=== PATIENT | male | born 1995 | race Caucasian/White ===

== ENCOUNTER 2017-09-03 16:59 | Emergency (ER) | payer MEDICAID, OTHER ==
[~2017-09-03] VITALS: Ht 190.5 cm; Wt 80.0 kg
[~2017-09-03 16:59] MED LIST: CEPH500C5 PO; NO HOME MEDS
[2017-09-03 17:13] VITALS: BP 112/70
[2017-09-03] MEDS ORDERED: HYDR28CR14 TOP (17:18)
[2017-09-03] MEDS ORDERED: triamcinolone acetonide 40mg/ml inj IM ONE (17:20)
== END 2017-09-03 17:46 | disposition home or self-care (01) ==
LOC: ER 17:00
DX: L23.7 Allergic contact dermatitis due to plants, except food (principal); F12.90 Cannabis use, unspecified, uncomplicated; Z79.899 Other long term (current) drug therapy; Z60.2 Problems related to living alone
CPT/HCPCS: 96372; 99283; J3301

== ENCOUNTER 2017-10-26 17:40 | Emergency (ER) | payer OTHER ==
[~2017-10-26] VITALS: Ht 190.5 cm; Wt 80.0 kg
[~2017-10-26 17:40] MED LIST changes: +HYDR28CR14 TOP
[2017-10-26] MEDS ORDERED: famotidine/PF 10 mg/ml inj IV ONE (18:00)
[2017-10-26] MEDS ORDERED: ondansetron/PF 4mg/2ml inj IV ONE (18:00)
[2017-10-26] MEDS ORDERED: normal saline 1000ML IV soln IVB ONE (18:00)
[2017-10-26 18:05] LABS: CLARITY,URINE CLEAR (Clear); COLOR,URINE YELLOW (Yellow); GLUCOSE, URINE NEGATIVE (Neg); KETONES,URINE NEGATIVE (Neg); LEUKOCYTE ESTERASE ,URINE NEGATIVE (Neg); NITRITES, URINE NEGATIVE (Neg); OCCULT BLOOD,URINE NEGATIVE (Neg); PROTEIN,URINE NEGATIVE (Neg); UA COLLECTION TYPE CLN CATCH MIDSTREAM; UROBILINOGEN,URINE 0.2 E.U/dL (0.2-1.0)
[2017-10-26 18:05] LABS: BASOPHILS % (AUTO) 0.3 % (0-1); EOSINOPHILS # (AUTO) 0.3 X10'3 (0-0.9); HEMATOCRIT 49.4 % (42.0-52.0); LYMPHOCYTES % (AUTO) 7.2 % (21-51); MEAN CORPUSCULAR HEMOGLOBIN 30.5 PG (27.0-31.0); MEAN CORPUSCULAR HGB CONC 34.4 % (33.0-36.5); MEAN CORPUSCULAR VOLUME 88.8 FL (78-98); MEAN PLATELET VOLUME 7.1 FL (7.4-10.4); MONOCYTES # (AUTO) 0.3 X10'3 (0-0.9); MONOCYTES % (AUTO) 2.2 % (2-12); NEUTROPHILS # (AUTO) 12.2 X10'3 (1.8-7.7); NEUTROPHILS % (AUTO) 88.3 % (42-75); PLATELET COUNT 201 X10'3 (140-440); RED BLOOD COUNT 5.56 X10'6 (4.70-6.10); WHITE BLOOD COUNT 13.9 X10'3 (4.5-11.0)
[2017-10-26 18:13] LABS: INR 1.1 INR; PROTHROMBIN TIME 11.3 SECONDS (9.0-12.0)
[2017-10-26 18:19] LABS: ALANINE AMINOTRANSFERASE 23 U/L (12-78); ALBUMIN 4.5 G/DL (3.4-5.0); ALBUMIN/GLOBULIN RATIO 1.4 (1.1-1.5); ALKALINE PHOSPHATASE 101 IU/L (46-116); ANION GAP 10 (8-16); ASPARTATE AMINO TRANSFERASE 12 U/L (10-37); BILIRUBIN,TOTAL 1.1 MG/DL (0.1-1.0); BLOOD UREA NITROGEN 11 MG/DL (7-18); BUN/CREATININE RATIO 12.1 (5.4-32.0); CALCIUM 9.6 MG/DL (8.5-10.1); CHLORIDE 99 MMOL/L (99-107); CREATININE 0.91 MG/DL (0.60-1.10); GLUCOSE 82 MG/DL (70-104); LIPASE 72 U/L (73-393); POTASSIUM 3.9 MMOL/L (3.5-5.1); SODIUM 135 MMOL/L (135-145); TOTAL CARBON DIOXIDE 25.6 MMOL/L (24-32); TOTAL PROTEIN 7.8 G/DL (6.4-8.2); eGFR > 90 ML/MIN
[2017-10-26] MEDS ORDERED: ONDA4TAB9 SL (18:34)
[2017-10-26] MEDS ORDERED: proCHLORperazine 10 MG/2 ml inj IV ONE (18:35)
[2017-10-26] MEDS ORDERED: ketorolac trometh. 30mg/ml inj. IV ONE (18:35)
[2017-10-26 18:56] VITALS: BP 126/67
== END 2017-10-26 18:58 | disposition home or self-care (01) ==
LOC: ER 17:41
DX: K52.9 Noninfective gastroenteritis and colitis, unspecified (principal)
CPT/HCPCS: 36415; 80053; 81003; 83690; 85025; 85610; 96361; 96374; 96375; 99284; J0780; J1885; J2405; J3490; J7030

== ENCOUNTER 2017-10-29 16:32 | Emergency (ER) | payer OTHER ==
[~2017-10-29] VITALS: Ht 190.5 cm; Wt 79.5 kg
[~2017-10-29 16:32] MED LIST changes: +ONDA4TAB9 SL
[2017-10-29 16:55] VITALS: BP 110/67
[2017-10-29] MEDS ORDERED: HYDROcodone/acetaminophen 5mg/325mg tablet PO ONE (18:15)
[2017-10-29] MEDS ORDERED: ondansetron 4mg rapidly disintigrating tab PO ONE (18:15)
[2017-10-29] MEDS ORDERED: ibuprofen tablet 400 MG TABLET PO ONE (18:15)
[2017-10-29] MEDS ORDERED: IBUP-1986 PO (18:16)
== END 2017-10-29 18:45 | disposition home or self-care (01) ==
LOC: ER 16:32
DX: S62.326A Displaced fracture of shaft of fifth metacarpal bone, right hand, initial encounter for closed fracture (principal); F12.10 Cannabis abuse, uncomplicated; W22.01XA Walked into wall, initial encounter; Y93.89 Activity, other specified; Y92.89 Other specified places as the place of occurrence of the external cause; Y99.8 Other external cause status
CPT/HCPCS: 29125; 73130; 99284

== ENCOUNTER 2017-11-05 08:51 | Outpatient (CLI) | payer MEDICAID, OTHER ==
[~2017-11-05 08:51] MED LIST changes: +IBUP-1986 PO; -ONDA4TAB9 SL
[2017-11-05 08:52] VITALS: BP 124/68
== END 2017-11-05 10:11 | disposition home or self-care (01) ==
LOC: ORTHO 08:51
PROVIDERS: ATTEND Nurse Practitioner Family
DX: S62.326A Displaced fracture of shaft of fifth metacarpal bone, right hand, initial encounter for closed fracture (principal); M79.89 Other specified soft tissue disorders; N18.1 Chronic kidney disease, stage 1; F17.210 Nicotine dependence, cigarettes, uncomplicated; F12.90 Cannabis use, unspecified, uncomplicated; Z60.2 Problems related to living alone; X58.XXXA Exposure to other specified factors, initial encounter; Y93.89 Activity, other specified; Y92.89 Other specified places as the place of occurrence of the external cause; Y99.8 Other external cause status
CPT/HCPCS: 73130; 99215

== ENCOUNTER 2017-11-19 13:48 | Day surgery (SDC) | payer MEDICAID ==
[2017-11-17 11:18] LABS: BASOPHILS % (AUTO) 0.6 % (0-1); EOSINOPHILS # (AUTO) 0.1 X10'3 (0-0.9); EOSINOPHILS % (AUTO) 1.8 % (0-6); LYMPHOCYTES % (AUTO) 31.9 % (21-51); MEAN CORPUSCULAR HEMOGLOBIN 30.9 PG (27.0-31.0); MEAN CORPUSCULAR HGB CONC 34.9 % (33.0-36.5); MEAN CORPUSCULAR VOLUME 88.7 FL (78-98); MEAN PLATELET VOLUME 6.9 FL (7.4-10.4); MONOCYTES # (AUTO) 0.4 X10'3 (0-0.9); MONOCYTES % (AUTO) 6.5 % (2-12); NEUTROPHILS # (AUTO) 3.7 X10'3 (1.8-7.7); NEUTROPHILS % (AUTO) 59.2 % (42-75); PRE OP HEMATOCRIT 43.9 % (42.0-52.0); PRE OP HEMOGLOBIN 15.3 g/dL (14.0-17.9); PRE OP PLATELET COUNT 232 X10'3 (140-440); RED BLOOD COUNT 4.95 X10'6 (4.70-6.10); RED CELL DISTRIBUTION WIDTH 12.7 % (11.5-14.5)
[2017-11-17 11:36] LABS: ALBUMIN 4.1 G/DL (3.4-5.0); ALBUMIN/GLOBULIN RATIO 1.3 (1.1-1.5); ALKALINE PHOSPHATASE 90 IU/L (46-116); BLOOD UREA NITROGEN 13 MG/DL (7-18); BUN/CREATININE RATIO 18.1 (5.4-32.0); CALCIUM 9.1 MG/DL (8.5-10.1); CHLORIDE 105 MMOL/L (99-107); CREATININE 0.72 MG/DL (0.60-1.10); PRE OP ALT 29 U/L (30-65); PRE OP ANION GAP 6 (8-16); PRE OP AST 13 U/L (10-37); PRE OP BILIRUB, TOTAL 0.4 MG/DL (0.0-1.0); PRE OP GLUCOSE 94 MG/DL (70-104); PRE OP POTASSIUM 4.9 MMOL/L (3.4-5.1); PRE OP SODIUM 140 MMOL/L (135-145); TOTAL PROTEIN 7.2 G/DL (6.4-8.2); eGFR > 90 ML/MIN
[2017-11-19] VITALS (13 sets, daily range): BP systolic 125–152; BP diastolic 69–93
[~2017-11-19] VITALS: Ht 190.5 cm; Wt 80.8 kg
[~2017-11-19 13:48] MED LIST changes: -CEPH500C5 PO; +Cefazolin 2GM/50ML dext iso,osmotic IVPB IV ONE; -HYDR28CR14 TOP; -NO HOME MEDS; +ONDA4TAB6 PO; +albuterol 2.5 MG/3 ML nebule NEB ONE; +famotidine 20mg tablet PO ONE; +ringers solution, lacted 1,000 ML IV SCH; +vancomycin inj 1,500 MG in normal saline 300ml IV soln IV ONE
[2017-11-19] MEDS ORDERED: BUPIVAcaine/PF 2.5mg/ml (0.25%) 10ml vial ONE (14:04)
[2017-11-19] MEDS ORDERED: ceFAZolin 1000mg inj ONE (14:04)
[2017-11-19] MEDS ORDERED: bacitracin 15gm ointment TP ONE (14:04)
[2017-11-19] MEDS ORDERED: IBUP-1986 PO (15:27)
[2017-11-19] MEDS ORDERED: dexamethasone sod phosphate 10mg/ml inj ONE (16:00)
[2017-11-19] MEDS ORDERED: sevoflurane 250ml liquid IH ONE (16:00)
[2017-11-19] MEDS ORDERED: fentaNYL/PF 50MCG/1 ML 2ML syringe ONE ×2 (16:07→16:40)
[2017-11-19] MEDS ORDERED: propofol inj 20 ML IV ONE (16:16)
[2017-11-19] MEDS ORDERED: LIDOcaine 2% (20mg/ml) 5ml vial ONE (16:16)
[2017-11-19] MEDS ORDERED: ondansetron/PF 4mg/2ml inj ONE (16:17)
[2017-11-19] MEDS ORDERED: ringers solution, lacted 1,000 ML IV SCH (16:27)
[2017-11-19] MEDS ORDERED: ondansetron/PF 4mg/2ml inj IV PRN (16:30)
[2017-11-19] MEDS ORDERED: meperidine/PF 25mg/ml syringe IV PRN (16:30)
[2017-11-19] MEDS ORDERED: morphine 4 MG/ML inj SYRINge IV PRN ×2 (16:30)
[2017-11-19] MEDS ORDERED: hydrALAZINE 20mg/ml inj. IV PRN (16:30)
[2017-11-19] MEDS ORDERED: labetalol 20mg/4ml (5mg/ml) syringe IV PRN (16:30)
[2017-11-19] MEDS: meperidine/PF 25mg/ml syringe IV PRN ×4 (17:34→18:57)
[2017-11-19] MEDS ORDERED: ketorolac trometh. 30mg/ml inj. IV ONE (18:55)
== END 2017-11-19 19:23 | disposition home or self-care (01) ==
LOC: PAS 13:48
PROVIDERS: ATTEND Orthopaedic Surgery
DX: S62.326A Displaced fracture of shaft of fifth metacarpal bone, right hand, initial encounter for closed fracture (principal); F17.210 Nicotine dependence, cigarettes, uncomplicated; N19 Unspecified kidney failure; F10.21 Alcohol dependence, in remission; Z79.1 Long term (current) use of non-steroidal anti-inflammatories (NSAID); Z86.14 Personal history of Methicillin resistant Staphylococcus aureus infection; Z79.899 Other long term (current) drug therapy; X58.XXXA Exposure to other specified factors, initial encounter; Y93.89 Activity, other specified; Y92.89 Other specified places as the place of occurrence of the external cause; Y99.8 Other external cause status
CPT/HCPCS: 26615; 36415; 80053; 85025; J0690; J1885; J2001; J2175; J2270; J2405; J2704; J3010; J3370; J3490; J7120; A6449; A7000; C1713; J1100

== ENCOUNTER 2017-11-24 22:03 | Emergency (ER) | payer MEDICAID ==
[~2017-11-24] VITALS: Ht 190.5 cm; Wt 63.7 kg
[~2017-11-24 22:03] MED LIST changes: -Cefazolin 2GM/50ML dext iso,osmotic IVPB IV ONE; -albuterol 2.5 MG/3 ML nebule NEB ONE; -famotidine 20mg tablet PO ONE; -ringers solution, lacted 1,000 ML IV SCH; -vancomycin inj 1,500 MG in normal saline 300ml IV soln IV ONE
[2017-11-24 22:04] VITALS: BP 120/73
== END 2017-11-24 22:37 | disposition home or self-care (01) ==
LOC: ER 22:04
DX: S62.326D Displaced fracture of shaft of fifth metacarpal bone, right hand, subsequent encounter for fracture with routine healing (principal); N18.9 Chronic kidney disease, unspecified; F12.90 Cannabis use, unspecified, uncomplicated; Z79.899 Other long term (current) drug therapy; Z60.2 Problems related to living alone; W22.01XD Walked into wall, subsequent encounter
CPT/HCPCS: 99281

== ENCOUNTER 2017-12-02 16:10 | Outpatient (CLI) | payer MEDICAID ==
[2017-12-02 16:20] VITALS: BP 123/77
== END 2017-12-02 16:44 | disposition home or self-care (01) ==
LOC: ORTHO 16:10
PROVIDERS: ATTEND Nurse Practitioner Family
DX: S62.326G Displaced fracture of shaft of fifth metacarpal bone, right hand, subsequent encounter for fracture with delayed healing (principal); F17.210 Nicotine dependence, cigarettes, uncomplicated; F12.90 Cannabis use, unspecified, uncomplicated; Z60.2 Problems related to living alone; Z72.89 Other problems related to lifestyle; X58.XXXD Exposure to other specified factors, subsequent encounter
CPT/HCPCS: 73120; 99214

== ENCOUNTER 2017-12-16 15:54 | Outpatient (CLI) | payer MEDICAID ==
[2017-12-16 15:57] VITALS: BP 142/76
== END 2017-12-16 16:24 | disposition home or self-care (01) ==
LOC: ORTHO 15:54
PROVIDERS: ATTEND Nurse Practitioner Family
DX: S62.326D Displaced fracture of shaft of fifth metacarpal bone, right hand, subsequent encounter for fracture with routine healing (principal); F17.210 Nicotine dependence, cigarettes, uncomplicated; Z60.2 Problems related to living alone; X58.XXXD Exposure to other specified factors, subsequent encounter
CPT/HCPCS: 73130; 99213

== ENCOUNTER 2018-01-24 16:07 | Emergency (ER) | payer MEDICAID ==
[~2018-01-24] VITALS: Ht 190.5 cm; Wt 81.0 kg
[2018-01-24 16:21] VITALS: BP 121/69
[2018-01-24] MEDS ORDERED: SULF1TAB49 PO (18:03)
[2018-01-24] MEDS ORDERED: VALA100027 PO (18:12)
== END 2018-01-24 18:25 | disposition home or self-care (01) ==
LOC: ER 16:08
DX: L02.11 Cutaneous abscess of neck (principal); B00.9 Herpesviral infection, unspecified; N18.9 Chronic kidney disease, unspecified; F12.90 Cannabis use, unspecified, uncomplicated; Z86.14 Personal history of Methicillin resistant Staphylococcus aureus infection; Z98.890 Other specified postprocedural states; Z60.2 Problems related to living alone; Z79.2 Long term (current) use of antibiotics; Z79.899 Other long term (current) drug therapy
CPT/HCPCS: 99283

== ENCOUNTER 2018-01-26 10:29 | Emergency (ER) | payer MEDICAID ==
[~2018-01-26] VITALS: Ht 190.5 cm; Wt 77.3 kg
[~2018-01-26 10:29] MED LIST changes: +SULF1TAB49 PO; +VALA100027 PO
[2018-01-26 13:02] VITALS: BP 122/71
== END 2018-01-26 13:03 | disposition home or self-care (01) ==
LOC: ER 10:30
DX: S62.326D Displaced fracture of shaft of fifth metacarpal bone, right hand, subsequent encounter for fracture with routine healing (principal); N18.9 Chronic kidney disease, unspecified; F12.90 Cannabis use, unspecified, uncomplicated; Z60.2 Problems related to living alone; W22.01XD Walked into wall, subsequent encounter
CPT/HCPCS: 29125; 99283

== ENCOUNTER 2018-01-30 19:03 | Emergency (ER) | payer MEDICAID ==
[~2018-01-30] VITALS: Ht 190.5 cm; Wt 78.0 kg
[2018-01-30 19:16] VITALS: BP 131/71
== END 2018-01-30 21:05 | disposition home or self-care (01) ==
LOC: ER 19:03
DX: S62.306A Unspecified fracture of fifth metacarpal bone, right hand, initial encounter for closed fracture (principal); N18.9 Chronic kidney disease, unspecified; F12.10 Cannabis abuse, uncomplicated; Z86.14 Personal history of Methicillin resistant Staphylococcus aureus infection; W01.0XXA Fall on same level from slipping, tripping and stumbling without subsequent striking against object, initial encounter; Y93.89 Activity, other specified; Y92.89 Other specified places as the place of occurrence of the external cause; Y99.8 Other external cause status
CPT/HCPCS: 73130; 99284

== ENCOUNTER 2018-02-02 13:36 | Outpatient (CLI) | payer MEDICAID ==
[2018-02-02 13:37] VITALS: BP 136/81
== END 2018-02-02 14:45 | disposition home or self-care (01) ==
LOC: ORTHO 13:36
PROVIDERS: ATTEND Nurse Practitioner Family
DX: S62.326G Displaced fracture of shaft of fifth metacarpal bone, right hand, subsequent encounter for fracture with delayed healing (principal); F17.210 Nicotine dependence, cigarettes, uncomplicated; Z72.89 Other problems related to lifestyle; F12.90 Cannabis use, unspecified, uncomplicated; Z60.2 Problems related to living alone; X58.XXXD Exposure to other specified factors, subsequent encounter
CPT/HCPCS: 99213

== ENCOUNTER 2018-02-23 23:14 | Emergency (ER) | payer MEDICAID ==
[~2018-02-23] VITALS: Ht 190.5 cm; Wt 81.4 kg
[~2018-02-23 23:14] MED LIST changes: -SULF1TAB49 PO
[2018-02-23 23:17] VITALS: BP 139/70
[2018-02-24] MEDS ORDERED: PRED20TA PO (02:14)
[2018-02-24] MEDS ORDERED: TRIA15CR61 TOP (02:14)
[2018-02-24] MEDS ORDERED: predniSONE 20 mg tablet PO ONE (02:15)
== END 2018-02-24 02:21 | disposition home or self-care (01) ==
LOC: ER 23:15
DX: L23.7 Allergic contact dermatitis due to plants, except food (principal); N18.9 Chronic kidney disease, unspecified; F12.10 Cannabis abuse, uncomplicated; Z86.14 Personal history of Methicillin resistant Staphylococcus aureus infection
CPT/HCPCS: 99283

== ENCOUNTER 2018-03-22 18:30 | Emergency (ER) | payer MEDICAID ==
[~2018-03-22] VITALS: Ht 190.5 cm; Wt 81.0 kg
[~2018-03-22 18:30] MED LIST changes: +PRED20TA PO; +TRIA15CR61 TOP
[2018-03-22] MEDS ORDERED: ondansetron 4mg rapidly disintigrating tab PO ONE (18:50)
[2018-03-22 18:55] LABS: CLARITY,URINE CLEAR (Clear); COLOR,URINE YELLOW (Yellow); GLUCOSE, URINE NEGATIVE (Neg); KETONES,URINE NEGATIVE (Neg); LEUKOCYTE ESTERASE ,URINE NEGATIVE (Neg); NITRITES, URINE NEGATIVE (Neg); OCCULT BLOOD,URINE NEGATIVE (Neg); PROTEIN,URINE NEGATIVE (Neg); UROBILINOGEN,URINE 0.2 E.U/dL (0.2-1.0)
[2018-03-22 18:57] LABS: UA COLLECTION TYPE CLN CATCH MIDSTREAM
[2018-03-22 19:24] LABS: BASOPHILS % (AUTO) 0.2 % (0-1); EOSINOPHILS # (AUTO) 0.1 X10'3 (0-0.9); EOSINOPHILS % (AUTO) 1.1 % (0-6); HEMATOCRIT 43.5 % (42.0-52.0); HEMOGLOBIN 14.8 g/dl (14.0-17.9); LYMPHOCYTES # (AUTO) 2.2 X10'3 (1.1-4.8); LYMPHOCYTES % (AUTO) 17.4 % (21-51); MEAN CORPUSCULAR HEMOGLOBIN 30.9 PG (27.0-31.0); MEAN CORPUSCULAR HGB CONC 34.1 % (33.0-36.5); MEAN CORPUSCULAR VOLUME 90.6 FL (78-98); MEAN PLATELET VOLUME 7.5 FL (7.4-10.4); MONOCYTES # (AUTO) 0.6 X10'3 (0-0.9); MONOCYTES % (AUTO) 4.8 % (2-12); NEUTROPHILS # (AUTO) 9.5 X10'3 (1.8-7.7); NEUTROPHILS % (AUTO) 76.5 % (42-75); PLATELET COUNT 237 X10'3 (140-440); RED CELL DISTRIBUTION WIDTH 13.1 % (11.5-14.5); WHITE BLOOD COUNT 12.4 X10'3 (4.5-11.0)
[2018-03-22 19:37] VITALS: BP 131/76
[2018-03-22 19:41] LABS: INR 1.1 INR; PROTHROMBIN TIME 11.3 SECONDS (9.0-12.0)
[2018-03-22 19:44] LABS: ALANINE AMINOTRANSFERASE 20 U/L (12-78); ALBUMIN 4.2 G/DL (3.4-5.0); ALBUMIN/GLOBULIN RATIO 1.3 (1.1-1.5); ALKALINE PHOSPHATASE 86 IU/L (46-116); ANION GAP 6 (8-16); ASPARTATE AMINO TRANSFERASE 13 U/L (10-37); BILIRUBIN,TOTAL 0.5 MG/DL (0.1-1.0); BLOOD UREA NITROGEN 10 MG/DL (7-18); BUN/CREATININE RATIO 12.5 (5.4-32.0); CHLORIDE 105 MMOL/L (99-107); GLUCOSE 102 MG/DL (70-104); POTASSIUM 3.8 MMOL/L (3.5-5.1); SODIUM 142 MMOL/L (135-145); TOTAL CARBON DIOXIDE 31.3 MMOL/L (24-32); TOTAL PROTEIN 7.4 G/DL (6.4-8.2); eGFR > 90 ML/MIN
[2018-03-22] MEDS ORDERED: ONDA4TAB6 PO (19:45)
== END 2018-03-22 20:14 | disposition home or self-care (01) ==
LOC: ER 18:31
DX: R11.2 Nausea with vomiting, unspecified (principal); R50.9 Fever, unspecified; N18.9 Chronic kidney disease, unspecified; Z86.14 Personal history of Methicillin resistant Staphylococcus aureus infection; F12.90 Cannabis use, unspecified, uncomplicated; Z79.899 Other long term (current) drug therapy; Z60.2 Problems related to living alone
CPT/HCPCS: 36415; 80053; 81003; 85025; 85610; 99283

== ENCOUNTER 2018-04-18 09:01 | Emergency (ER) | payer MEDICAID ==
[~2018-04-18] VITALS: Ht 190.5 cm; Wt 82.1 kg
[~2018-04-18 09:01] MED LIST changes: -IBUP-1986 PO; -PRED20TA PO; -TRIA15CR61 TOP; -VALA100027 PO
[2018-04-18 10:02] VITALS: BP 134/68
--- NOTE | 2018-04-18 10:32 | NUR ---
LUTHER Reece aware of pt LWOBS at this time.
== END 2018-04-18 10:31 | disposition left against medical advice (07) ==
LOC: ER 09:01
DX: Z53.21 Procedure and treatment not carried out due to patient leaving prior to being seen by health care provider (principal)

== ENCOUNTER 2019-02-09 20:22 | Emergency (ER) | payer MEDICAID, OTHER ==
[~2019-02-09] VITALS: Ht 190.5 cm; Wt 90.9 kg
[2019-02-09 20:24] VITALS: BP 148/88
[2019-02-09] MEDS ORDERED: ACYC-202 PO (21:43)
== END 2019-02-09 21:54 | disposition home or self-care (01) ==
LOC: ER 20:23
DX: B00.89 Other herpesviral infection (principal); M79.642 Pain in left hand; M79.641 Pain in right hand; F12.90 Cannabis use, unspecified, uncomplicated; N18.9 Chronic kidney disease, unspecified; F10.99 Alcohol use, unspecified with unspecified alcohol-induced disorder; Z86.14 Personal history of Methicillin resistant Staphylococcus aureus infection; Z60.2 Problems related to living alone; Z98.890 Other specified postprocedural states; Z79.899 Other long term (current) drug therapy; Y90.9 Presence of alcohol in blood, level not specified
CPT/HCPCS: 99283

== ENCOUNTER 2019-03-03 19:58 | Emergency (ER) | payer MEDICAID, OTHER ==
--- NOTE | 2019-03-03 20:04 | NUR ---
Patient called in to triage. Patient was politely greeted and asked the reason for his visit. He states, "to get a second opinion. I'm tired of listening to them." I asked him what that meant and he sat up, leaned in rapidly and growled, "exactly what it sounds like." I attempted to place the blood pressure cuff on the patient's arm and he jerked away from me stating, "don't do that!" I asked the patient if he would remove his gloves so that I could place the SpO2 monitor on his fingers and he refuses stating, "I won't" and when asked why he states, "medical reasons." I asked the patient how we could help him and he states, "you can't" and then quickly left triage and the ER lobby.
== END 2019-03-03 20:08 | disposition left against medical advice (07) ==
LOC: ER 19:59
DX: Z00.8 Encounter for other general examination (principal); Z53.21 Procedure and treatment not carried out due to patient leaving prior to being seen by health care provider

== ENCOUNTER 2019-03-04 15:35 | Emergency (ER) | payer MEDICAID, OTHER ==
[~2019-03-04] VITALS: Ht 190.5 cm; Wt 83.0 kg
[2019-03-04 15:41] VITALS: BP 121/85
--- NOTE | 2019-03-04 18:12 | NUR ---
ATTEMPTED TO CALL PT. ON PHONE NUMBER LISTED [phone]... NUMBER IS NO LONGER IN SERVICE. ATTEMPTED TO CALL [employer] (SIGNIFICANT OTHER) AT NUMBER LISTED .... NUMBER IS NO LONGER IN SERVICE
== END 2019-03-04 18:21 | disposition left against medical advice (07) ==
LOC: ER 15:36
DX: Z00.8 Encounter for other general examination (principal); Z53.21 Procedure and treatment not carried out due to patient leaving prior to being seen by health care provider

== ENCOUNTER 2019-04-12 08:21 | Emergency (ER) | payer SELFPAY ==
[~2019-04-12] VITALS: Ht 190.5 cm; Wt 80.0 kg
[2019-04-12 08:35] VITALS: BP 132/85
--- NOTE | 2019-04-12 09:10 | NUR ---
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 PT AND BELONGINGS GONE. LUTHER ALEGRIA AND ANISHA BREEN NOTIFIED.
== END 2019-04-12 09:30 | disposition left against medical advice (07) ==
LOC: ER 08:21
DX: R53.1 Weakness (principal); R20.0 Anesthesia of skin; N18.9 Chronic kidney disease, unspecified; F12.90 Cannabis use, unspecified, uncomplicated; F17.210 Nicotine dependence, cigarettes, uncomplicated; Z72.89 Other problems related to lifestyle; Z60.2 Problems related to living alone; Z98.890 Other specified postprocedural states; Z86.14 Personal history of Methicillin resistant Staphylococcus aureus infection; Z79.899 Other long term (current) drug therapy
CPT/HCPCS: 99281

== ENCOUNTER 2019-04-30 05:37 | Emergency (ER) | payer OTHER ==
[~2019-04-30] VITALS: Ht 190.5 cm; Wt 72.7 kg
[2019-04-30 05:42] VITALS: BP 126/73
== END 2019-04-30 06:35 | disposition left against medical advice (07) ==
LOC: ER 05:38
DX: M25.512 Pain in left shoulder (principal); M54.2 Cervicalgia; M79.642 Pain in left hand; Z53.21 Procedure and treatment not carried out due to patient leaving prior to being seen by health care provider

== ENCOUNTER 2019-05-11 21:07 | Emergency (ER) | payer SELFPAY ==
[~2019-05-11] VITALS: Ht 185.4 cm; Wt 81.4 kg
[2019-05-11 21:10] VITALS: BP 139/83
[2019-05-11] MEDS ORDERED: MECL-159 PO (21:30)
[2019-05-11] MEDS ORDERED: meclizine 12.5mg tablet PO ONE (21:30)
== END 2019-05-11 22:10 | disposition home or self-care (01) ==
LOC: ER 21:09
DX: R42 Dizziness and giddiness (principal); N18.9 Chronic kidney disease, unspecified; F12.90 Cannabis use, unspecified, uncomplicated; Z86.14 Personal history of Methicillin resistant Staphylococcus aureus infection; Z72.89 Other problems related to lifestyle; Z60.2 Problems related to living alone; Z79.899 Other long term (current) drug therapy
CPT/HCPCS: 99282; J8597

== ENCOUNTER 2022-10-02 16:20 | Emergency (ER) | payer MEDICAID ==
[~2022-10-02] VITALS: Ht 190.5 cm; Wt 100.0 kg
[~2022-10-02 16:20] MED LIST changes: +MECL-159 PO
[2022-10-02 16:50] VITALS: BP 145/88; PULSE 95; RESP 20; TEMP 98.2; O2SAT 96
[2022-10-02] MEDS ORDERED: ibuprofen tablet 400 MG TABLET PO ONE (17:55)
== END 2022-10-02 18:27 | disposition home or self-care (01) ==
LOC: ER 16:21
DX: M25.522 Pain in left elbow (principal); N18.9 Chronic kidney disease, unspecified; Z86.14 Personal history of Methicillin resistant Staphylococcus aureus infection; W10.8XXA Fall (on) (from) other stairs and steps, initial encounter; Y93.89 Activity, other specified; Y92.89 Other specified places as the place of occurrence of the external cause; Y99.8 Other external cause status
CPT/HCPCS: 73080; 99283; A4565

== ENCOUNTER 2023-03-23 02:24 | Emergency (ER) | payer MEDICAID, OTHER ==
[~2023-03-23] VITALS: Ht 190.5 cm; Wt 127.2 kg
[~2023-03-23 02:24] MED LIST changes: -MECL-159 PO; +MECL-302 PO
[2023-03-23] MEDS ORDERED: acetaminophen 325mg tablet PO ONE (02:30)
[2023-03-23] MEDS ORDERED: ibuprofen tablet 400 MG TABLET PO ONE (02:30)
[2023-03-23] MEDS ORDERED: AMOX-100 PO (02:35)
[2023-03-23 03:27] VITALS: BP 110/60; PULSE 65; RESP 17; TEMP 98.1; O2SAT 97
== END 2023-03-23 03:32 | disposition home or self-care (01) ==
LOC: ER 02:25
DX: K02.9 Dental caries, unspecified (principal); N18.9 Chronic kidney disease, unspecified; F12.90 Cannabis use, unspecified, uncomplicated; Z79.899 Other long term (current) drug therapy
CPT/HCPCS: 99283

== ENCOUNTER 2023-05-02 02:29 | Emergency (ER) | payer OTHER ==
[~2023-05-02] VITALS: Ht 190.5 cm; Wt 127.3 kg
[2023-05-02 02:33] VITALS: TEMP 98.3
[2023-05-02] MEDS ORDERED: IBUP-1985 PO (04:15)
[2023-05-02] MEDS: ibuprofen tablet 400 MG TABLET PO ONE (04:23)
[2023-05-02] MEDS: triamcinolone acetonide 40mg/ml inj IM ONE (04:23)
[2023-05-02] MEDS: acetaminophen 325mg tablet PO ONE (04:23)
[2023-05-02 04:27] VITALS: BP 148/74; PULSE 89; RESP 14; O2SAT 100
== END 2023-05-02 04:28 | disposition home or self-care (01) ==
LOC: ER 02:30
DX: R25.2 Cramp and spasm (principal); N18.9 Chronic kidney disease, unspecified; F12.90 Cannabis use, unspecified, uncomplicated; Z79.1 Long term (current) use of non-steroidal anti-inflammatories (NSAID); Z79.899 Other long term (current) drug therapy
CPT/HCPCS: 96372; 99283; J3301

== ENCOUNTER 2023-05-27 23:06 | Emergency (ER) | payer OTHER ==
[~2023-05-27] VITALS: Ht 190.5 cm; Wt 127.2 kg
[~2023-05-27 23:06] MED LIST changes: +IBUP-1985 PO
[2023-05-27 23:12] VITALS: TEMP 98
[2023-05-28] MEDS ORDERED: GABA300C PO (01:08)
[2023-05-28] MEDS ORDERED: IBUP-1984 PO (01:09)
[2023-05-28] MEDS ORDERED: ACET-812 PO (01:09)
[2023-05-28 01:21] VITALS: BP 169/99; PULSE 85; RESP 16; O2SAT 94
== END 2023-05-28 01:24 | disposition home or self-care (01) ==
LOC: ER 23:07
DX: G50.0 Trigeminal neuralgia (principal); N18.9 Chronic kidney disease, unspecified; F12.10 Cannabis abuse, uncomplicated; Z86.14 Personal history of Methicillin resistant Staphylococcus aureus infection
CPT/HCPCS: 99283

== ENCOUNTER 2024-03-18 08:59 | Emergency (ER) | payer MEDICAID ==
[~2024-03-18] VITALS: Ht 190.5 cm; Wt 117.5 kg
[~2024-03-18 08:59] MED LIST changes: +CEPH250T PO; +GABA300C PO; -IBUP-1985 PO; -MECL-302 PO; -ONDA4TAB6 PO
[2024-03-18 09:06] VITALS: TEMP 97.9
[2024-03-18 10:06] LABS: BASOPHILS % (AUTO) 0.6 % (0-1); EOSINOPHILS # (AUTO) 0.1 X10'3 (0-0.9); EOSINOPHILS % (AUTO) 2.1 % (0-6); HEMATOCRIT 49.2 % (42.0-52.0); HEMOGLOBIN 17.1 g/dl (14.0-17.9); LYMPHOCYTES # (AUTO) 2.1 X10'3 (1.1-4.8); LYMPHOCYTES % (AUTO) 33.1 % (21-51); MEAN CORPUSCULAR HEMOGLOBIN 31.4 PG (27.0-31.0); MEAN CORPUSCULAR HGB CONC 34.8 g/dL (33.0-36.5); MEAN CORPUSCULAR VOLUME 90.4 FL (78-98); MEAN PLATELET VOLUME 7.5 FL (7.4-10.4); MONOCYTES % (AUTO) 15.5 % (2-12); NEUTROPHILS % (AUTO) 48.7 % (42-75); PLATELET COUNT 261 X10'3 (140-440); RED BLOOD COUNT 5.44 X10'6 (4.70-6.10); RED CELL DISTRIBUTION WIDTH 13.2 % (11.5-14.5); WHITE BLOOD COUNT 6.2 X10'3 (4.5-11.0)
[2024-03-18 10:20] LABS: ALBUMIN 4.2 G/DL (3.4-5.0); ANION GAP 6 (8-16); BLOOD UREA NITROGEN 11 MG/DL (7-18); BUN/CREATININE RATIO 13.8 (10.0-20.0); CALCIUM 9.6 MG/DL (8.5-10.1); CHLORIDE 103 MMOL/L (99-107); GLUCOSE 109 MG/DL (70-104); LIPASE 21 U/L (16-77); POTASSIUM 4.8 MMOL/L (3.5-5.1); SODIUM 137 MMOL/L (135-145); TOTAL CARBON DIOXIDE 27.6 MMOL/L (24-32); eCRCL 164 ML/MIN; eGFR > 90 ML/MIN
[2024-03-18 10:31] VITALS: BP 136/94
[2024-03-18 11:59] VITALS: PULSE 87; RESP 16; O2SAT 95
== END 2024-03-18 12:02 | disposition home or self-care (01) ==
LOC: ER 08:59
DX: U07.1 COVID-19 (principal); R04.2 Hemoptysis; N18.9 Chronic kidney disease, unspecified; F12.90 Cannabis use, unspecified, uncomplicated; Z98.890 Other specified postprocedural states
CPT/HCPCS: 36415; 71046; 80048; 83690; 85025; 87502; 87503; 87811; 99284

== ENCOUNTER 2024-04-28 07:50 | Emergency (ER) | payer MEDICAID ==
[~2024-04-28] VITALS: Ht 190.5 cm; Wt 116.5 kg
[2024-04-28 09:03] LABS: STREP A SCREEN POSITIVE (Neg)
[2024-04-28] MEDS: ketorolac trometh 30MG/ML vial 30 MG/ML VIAL IM ONE (09:46)
[2024-04-28] MEDS: dexamethasone sod phosphate 10mg/ml inj IM STA (09:46)
[2024-04-28] MEDS ORDERED: AMOX-580 PO (10:16)
[2024-04-28 10:21] VITALS: BP 148/91; PULSE 88; RESP 18; TEMP 98.8; O2SAT 100
== END 2024-04-28 10:26 | disposition home or self-care (01) ==
LOC: ER 07:50
DX: J02.0 Streptococcal pharyngitis (principal); N18.9 Chronic kidney disease, unspecified; F12.90 Cannabis use, unspecified, uncomplicated; Z98.890 Other specified postprocedural states
CPT/HCPCS: 87880; 96372; 99284; J1100; J1885